=== PATIENT | female | born 1950 | race Caucasian/White ===

== ENCOUNTER 2022-05-17 14:42 | Emergency (ER) | payer BC ==
[~2022-05-17] VITALS: Ht 160 cm; Wt 68.5 kg
--- NOTE | 2022-05-17 14:42 | NUR ---
[facility] BLS TO ER BED 1
[2022-05-17 14:45] VITALS: BP 89/42
[2022-05-17] MEDS ORDERED: NACL 0.9% 1,000 ML IV ONE (14:45)
[2022-05-17] MEDS ORDERED: ONDANSETRON 4 MG/2 ML VIAL IVP ONE (14:45)
--- NOTE | 2022-05-17 15:00 | NUR ---
71YO FEMALE PT BIBA FROM [facility] DUE TO VOMITING. PER [facility], FACILITY STATES PT SAT UP FROM WHEELCHAIR AND HAD PROJECTILE VOMIT, DENIE BLOOD IN VOMIT. UPON ARRIVAL PT AAOX1 TO NAME . 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 PT STATES DENIES NAUSEA OR ABDOMINAL PAIN AT THIS TIME. PT DENIES CHEST PAIN OR SOB. PT PUT ON MONITOR. NO VISIBLE DISTESS, RSPIRATIONS EVEN AND UNLABORED. HX: ALZEHEIMERS, DEMENTIA, HDL NKA
[2022-05-17 15:20] LABS: BASOPHILS % (AUTO) 0.4 % (0.0-2.0); EOSINOPHILS # (AUTO) 0.2 K/uL (0-0.4); HEMATOCRIT 36.5 % (36-48); HEMOGLOBIN 12.3 g/dL (12.0-16.0); LYMPHOCYTES # (AUTO) 1.5 K/uL (2.5-16.5); LYMPHOCYTES % (AUTO) 20.1 % (20.5-51.1); MEAN CORPUSCULAR HEMOGLOBIN 30 pg (27-31); MEAN CORPUSCULAR HGB CONC 34 g/dL (33-37); MEAN CORPUSCULAR VOLUME 90.1 fL (80-94); MONOCYTES # (AUTO) 1.7 K/uL (0.8-1.0); MONOCYTES % (AUTO) 23.3 % (1.7-9.3); NEUTROPHILS # (AUTO) 3.9 K/uL (1.8-7.7); NEUTROPHILS % (AUTO) 53.2 % (42.2-75.2); PLATELET COUNT (AUTO) 178 K/uL (140-450); RED BLOOD CELL COUNT(AUTO) 4.05 MIL/uL (4.20-5.40); RED CELL DISTRIBUTION WIDTH 14.5 % (11.6-13.7); WHITE BLOOD COUNT (AUTO) 7.4 K/uL (4.8-10.8)
[2022-05-17 15:51] LABS: ALBUMIN 3.7 g/dL (3.4-5.0); ANION GAP 8.4 (8-16); ASPARTATE AMINOTRANSFERASE 14 U/L (15-37); CHLORIDE 110 mmol/L (98-107); CREATININE 1.1 mg/dL (0.6-1.3); GLUCOSE 136 mg/dL (74-106); LIPASE 321 U/L (73-393); POTASSIUM 3.4 mmol/L (3.5-5.1); SODIUM SERUM 145 mmol/L (136-145); TOTAL BILIRUBIN 0.3 mg/dL (0.0-1.0); UREA NITROGEN, BLOOD 38 mg/dL (7-18)
[2022-05-17] MEDS ORDERED: ONDA-188 SL (17:24)
--- NOTE | 2022-05-17 17:50 | NUR ---
IV removed, catheter intact and site benign. Applied folded 4x4 gauze and tape to stop bleeding.
--- NOTE | 2022-05-17 17:52 | NUR ---
ELIZABETH CALLED AND MADE AWARE OF PT D/C AND TRANSPORTATION BY . SPOKE WITH "CHRISTA"
--- NOTE | 2022-05-17 17:53 | NUR ---
Patient discharged with v/s stable. Written and verbal after care instructions FOR N/V given and explained. Patient alert, oriented and verbalized understanding of instructions. Wheel Chair Assisted with by . All questions addressed prior to discharge. ID band removed. Patient advised to follow up with PMD. Rx of ZOFRAN given.Opportunity to ask questions provided and answered.
--- NOTE | 2022-05-17 17:54 | NUR ---
The patient's care was reviewed and supervised by Slime Ireland RN.
[2022-05-17 18:23] VITALS: BP 106/60
== END 2022-05-17 18:23 | disposition home or self-care (01) ==
LOC: MED 14:42
DX: R11.2 Nausea with vomiting, unspecified (principal); Z20.822 Contact with and (suspected) exposure to COVID-19; F03.90 Unspecified dementia, unspecified severity, without behavioral disturbance, psychotic disturbance, mood disturbance, and anxiety
CPT/HCPCS: 80053; 83690; 85025; 87426; 96361; 96374; 99283; J2405; J7030

== ENCOUNTER 2022-06-22 11:37 | Emergency (ER) | payer BC ==
[~2022-06-22] VITALS: Ht 160 cm; Wt 60.3 kg
[~2022-06-22 11:37] MED LIST: ONDA-188 SL
[2022-06-22 11:40] VITALS: BP 132/64
--- NOTE | 2022-06-22 12:06 | NUR ---
71YR OLD FEMALE BIB EMS C/O SWELLING TO R ANKLE. UNKNOWN AMOUNT OF TIME. PT IS FROM [facility]. PT IS A&OX1. PT HAS DEMENTIA. DENIES PAIN WHEN ASKED. SWELLING TO R FOOT/ ANKLE. REDDNESS / DISCOLOR. GOOD CAP REFILL . UNKNOWN MECH OF INJURY. PT IN BED WITH SIDE RAILS UP X2. HOB ELEVATED. BED AT LOWEST POSITION. DEMENTIA AZ
--- NOTE | 2022-06-22 12:08 | NUR ---
CALLED [facility] TO OBTAIN FURTHER INFORMATION, SPOKE WITH NURSE FADUMO. HE STATED THAT PT HAS BEEN LIMPING X1 MONTH BUT TODAY NOTICIED DISCOLORATION TO LATERAL ASPECT OF R ANKLE. FACILITY CONTACTED PTS THEATER COMPANY PRODUCER WHO WANTED HER SENT TO ER TO R/T CLOT. MANDY POP MADE AWARE
--- NOTE | 2022-06-22 12:09 | NUR ---
PA POP AT BEDSIDE EVALUATING PT
--- NOTE | 2022-06-22 12:48 | NUR ---
US AT BEDSIDE
--- NOTE | 2022-06-22 13:07 | NUR ---
ULTRASOUND AT BEDSIDE AND COMPLETE
--- NOTE | 2022-06-22 13:22 | NUR ---
RAD AT BEDSIDE
--- NOTE | 2022-06-22 13:30 | NUR ---
XRAY AT BEDSIDE
--- NOTE | 2022-06-22 13:35 | NUR ---
Patient discharged with v/s stable. Written and verbal after care instructions given and explained. Patient alert, oriented and verbalized understanding of instructions. Ambulatory with steady gait. All questions addressed prior to discharge. ID band removed. Patient advised to follow up with PMD. Rx of PEPCID ZOFRAN ODT MYLANTA given. Patient educated on indication of medication including possible reaction and side effects. Opportunity to ask questions provided and answered.
--- NOTE | 2022-06-22 14:05 | NUR ---
PT IS RESTING AT BEDSIDE. ULTRASOUND AND XRAY COMPLETED. PENDING RESULTS.
--- NOTE | 2022-06-22 14:15 | NUR ---
CALLED [facility] TO UPDATE THEM OF DX. PT IS DISCHARGED. SPOKE WITH LYNDSAY, INFORMED THEM THAT PTS WILL BE TAKING HER BACK TO FACILITY.
[2022-06-22 14:20] VITALS: BP 103/71
--- NOTE | 2022-06-22 14:21 | NUR ---
Patient discharged with v/s stable. Written and verbal after care instructions given and explained. Patient verbalized understanding. Wheel Chair Assisted with steady gait. All questions addressed prior to discharge. Advised to follow up with PMD.
== END 2022-06-22 14:21 | disposition home or self-care (01) ==
LOC: MED 11:37
DX: M25.571 Pain in right ankle and joints of right foot (principal); F03.90 Unspecified dementia, unspecified severity, without behavioral disturbance, psychotic disturbance, mood disturbance, and anxiety
CPT/HCPCS: 72170; 73610; 73630; 93971; 99284; Q0092

== ENCOUNTER 2022-12-14 18:50 | Inpatient (IN) | payer BC, OTHER ==
[~2022-12-14] VITALS: Ht 165.1 cm; Wt 65.8 kg
[2022-12-14 18:58] VITALS: BP 144/91
--- NOTE | 2022-12-14 19:03 | NUR ---
PT BIBA BLS TO BED 4
--- NOTE | 2022-12-14 19:15 | NUR ---
BIBA after mechanical fall at residential ([facility]). alert and responsive, pt confused at baseline hx dementia. c/o pain to right hip and hematoma on back of head. no s/s distress at this time. per report, no known allergies.
--- NOTE | 2022-12-14 19:16 | NUR ---
EKG at bedside
--- NOTE | 2022-12-14 19:48 | NUR ---
inside technical sales representative by bedside drawing labs
[2022-12-14 20:05] LABS: BASOPHILS % (AUTO) 0.5 % (0.0-2.0); EOSINOPHILS # (AUTO) 0.1 K/uL (0-0.4); EOSINOPHILS % (AUTO) 1.4 % (0.0-4.0); HEMATOCRIT 36.7 % (36-48); HEMOGLOBIN 12.3 g/dL (12.0-16.0); LYMPHOCYTES # (AUTO) 1.5 K/uL (2.5-16.5); LYMPHOCYTES % (AUTO) 20.1 % (20.5-51.1); MEAN CORPUSCULAR HEMOGLOBIN 31 pg (27-31); MEAN CORPUSCULAR HGB CONC 34 g/dL (33-37); MEAN CORPUSCULAR VOLUME 92.5 fL (80-94); MONOCYTES # (AUTO) 1.6 K/uL (0.8-1.0); MONOCYTES % (AUTO) 21.1 % (1.7-9.3); NEUTROPHILS # (AUTO) 4.3 K/uL (1.8-7.7); NEUTROPHILS % (AUTO) 56.9 % (42.2-75.2); PLATELET COUNT (AUTO) 175 K/uL (140-450); RED BLOOD CELL COUNT(AUTO) 3.96 MIL/uL (4.20-5.40); RED CELL DISTRIBUTION WIDTH 15.1 % (11.6-13.7); WHITE BLOOD COUNT (AUTO) 7.6 K/uL (4.8-10.8)
--- NOTE | 2022-12-14 20:08 | NUR ---
Pt taken to CT
--- NOTE | 2022-12-14 20:11 | NUR ---
PT UNCOOPERATIVE AND COMBATIVE PER PRODUCT DEVELOPMENT ASSISTANT. UNABLE TO GET CT AT THIS TIME. DR. SALAZAR MADE AWARE
[2022-12-14 20:40] LABS: ALBUMIN 4.2 g/dL (3.4-5.0); ANION GAP 13.8 (8-16); ASPARTATE AMINOTRANSFERASE 21 U/L (15-37); CARBON DIOXIDE 28.1 mmol/L (21-32); CHLORIDE 107 mmol/L (98-107); CREATININE 1.1 mg/dL (0.6-1.3); GLUCOSE 109 mg/dL (74-106); POTASSIUM 3.9 mmol/L (3.5-5.1); SODIUM SERUM 145 mmol/L (136-145); TOTAL BILIRUBIN 0.2 mg/dL (0.0-1.0); UREA NITROGEN, BLOOD 26 mg/dL (7-18)
[2022-12-14] MEDS ORDERED: diphenhydrAMINE 50 MG/ML VIAL IM ONE (21:00)
[2022-12-14] MEDS ORDERED: LORazepam 2 MG/ML VIAL IM/IVP ONE (21:00)
[2022-12-14] MEDS ORDERED: HALOPERIDOL IM 5 MG/ML VIAL IM ONE (21:00)
--- NOTE | 2022-12-14 21:05 | NUR ---
Pt confused and agitated, Dr. Jimenez aware and orders were received and carried out.
--- NOTE | 2022-12-14 21:52 | NUR ---
Pt taken to CT
--- NOTE | 2022-12-14 22:05 | NUR ---
Xray by bedside
[2022-12-14] MEDS ORDERED: AZITHROMYCIN 500 MG in DEXTROSE 5% 250 ML IV ONE (23:05)
--- NOTE | 2022-12-14 23:18 | NUR ---
Pt noted resting comfortably at this time. No s/s discomfort.
[2022-12-14] MEDS ORDERED: LORazepam 2 MG/ML VIAL IVP PRN (23:25)
--- NOTE | 2022-12-14 23:36 | NUR ---
Swab collected and sent to lab
[2022-12-15] MEDS ORDERED: SERT100T PO (00:17)
[2022-12-15] MEDS ORDERED: QUET50TA PO (00:17)
[2022-12-15] MEDS ORDERED: ATOR20TA PO (00:17)
[2022-12-15] MEDS ORDERED: ATI.5 PO (00:17)
[2022-12-15] MEDS ORDERED: DONE10TA37 PO (00:17)
[2022-12-15] MEDS ORDERED: MEMA10TA56 PO (00:17)
[2022-12-15] MEDS ORDERED: DIVA125E1 PO (00:17)
[2022-12-15] MEDS ORDERED: cefTRIAXone 1,000 MG VIAL ONE (00:24)
[2022-12-15] MEDS ORDERED: AZITHROMYCIN 500 MG INJ VIAL IV ONE (00:50)
--- NOTE | 2022-12-15 01:39 | NUR ---
Pt noted resting comfortably at this time. No c/o discomfort. No s/s distress
--- NOTE | 2022-12-15 02:10 | NUR ---
Pt changed and repositonined, linens changed.
--- NOTE | 2022-12-15 03:10 | NUR ---
Pt noted hypotensive with BP of 80/39. Dr. Santana contacted and received orders for 500 NS bolus and then NS @ 100ml/hr. Noted and carried out.
[2022-12-15] MEDS ORDERED: NACL 0.9% 500 ML IV SCH (03:25)
[2022-12-15] MEDS: NACL 0.9% 1,000 ML IV SCH ×3 (04:00→23:25)
--- NOTE | 2022-12-15 04:00 | NUR ---
Pt changed and repositioned. linens changed. No s/s discomfort at this time.
[2022-12-15] MEDS ORDERED: ALBUTEROL 0.083% 2.5 MG/3 ML NEBU INH PRN (06:50)
[2022-12-15 06:57] LABS: ANION GAP 15.9 (8-16); CARBON DIOXIDE 23.5 mmol/L (21-32); CHLORIDE 109 mmol/L (98-107); GLUCOSE 125 mg/dL (74-106); POTASSIUM 3.4 mmol/L (3.5-5.1); SODIUM SERUM 145 mmol/L (136-145); UREA NITROGEN, BLOOD 24 mg/dL (7-18)
[2022-12-15] MEDS ORDERED: ZOLPIDEM 10 MG TAB PO PRN (07:00)
[2022-12-15] MEDS ORDERED: MORPHINE SULFATE 2 MG/ML SYR IVP PRN (07:00)
[2022-12-15] MEDS ORDERED: DOCUSATE SODIUM 100 MG GELCAP PO PRN (07:00)
[2022-12-15] MEDS ORDERED: ACETAMINOPHEN 325 MG TAB PO PRN (07:00)
[2022-12-15] MEDS ORDERED: LORazepam 2 MG/ML VIAL IVP PRN (07:00)
[2022-12-15] MEDS ORDERED: MAG SULF 2000 MG/WATER PREMIX 50 ML IV PRN (07:00)
[2022-12-15] MEDS ORDERED: ONDANSETRON 4 MG/2 ML VIAL IVP PRN (07:00)
[2022-12-15] MEDS ORDERED: POTASSIUM CHLORIDE 10 MEQ TABER PO PRN (07:00)
--- NOTE | 2022-12-15 07:16 | NUR ---
Report given to Rudy DAVIDSON for transfer of care
--- NOTE | 2022-12-15 07:36 | NUR ---
Report given to STUART Galeana for room 108A.
[2022-12-15 08:26] VITALS: BP 122/60
[2022-12-15] MEDS: DIVALPROEX SPRINKLES 125 MG CAPDR PO SCH ×2 (09:00→23:49)
[2022-12-15] MEDS: MEMANTINE 10 MG TAB PO SCH ×2 (09:00→23:47)
[2022-12-15] MEDS: SERTRALINE 50 MG TAB PO SCH ×2 (09:00→23:50)
--- NOTE | 2022-12-15 09:02 | NUR ---
PATIENT HAS BEEN SCREENED AND CATEGORIZED MODERATE NUTRITION RISK. PATIENT WILL BE SEEN WITHIN 3-5 DAYS OF ADMISSION. REVIEWED BY EUGENE RICKETTS RD
[2022-12-15 12:00] VITALS: BP 124/67
[2022-12-15 16:00] VITALS: BP 112/73
--- NOTE | 2022-12-15 19:12 | NUR ---
12/15/20221912: REPORT OFF TO JOSE DAVIDSON. [id number].
--- NOTE | 2022-12-15 19:55 | NUR ---
FOUND PT ON RA WITH AN SPO2 OF 81%. PLACED PT ON O2, TITRATED TO 4L. CURRENT SPO2 97% ON 4L NC. NO RESPIRATORY DISTRESS AT THIS TIME, RN AWARE. WILL CONT TO MONITOR.
[2022-12-15 20:00] VITALS: BP 161/91
--- NOTE | 2022-12-15 20:00 | NUR ---
RECEIVED REPORT FROM DAY SHIFT NURSE FOR CONTINUITY OF CARE. PATIENT IS STABLE, SLEEPING IN BED. A&O X1. CURRENTLY ON 2L NC WITH A 02 SATURATION OF 98%. RESPIRATIONS EVEN AND UNLABORED, NO S/SX OF ACUTE DISTRESS NOTED. IV SITE LOCATED AT RIGHT AC, 18 GAUGE, INTACT AND PATENT. SKIN IS INTACT. SAFETY MEASURES IMPLEMENTED, CALL LIGHT WITHIN REACH, WILL CONTINUE TO MAKE FREQUENT ROUNDS.
[2022-12-15] MEDS ORDERED: DONEPEZIL 10 MG TAB PO SCH (21:00)
[2022-12-15] MEDS: LORazepam 0.5 MG TAB PO SCH ×2 (21:00→23:49)
[2022-12-15] MEDS: AZITHROMYCIN 500 MG in DEXTROSE 5% 250 ML IV SCH (23:00)
[2022-12-15] MEDS: ATORVASTATIN 20 MG TAB PO SCH (23:48)
--- NOTE | 2022-12-15 23:57 | NUR ---
SCHEDULED MEDICATIONS FOR 2100 GIVEN AT 2350 DUE TO PATIENT BEING ASLEEP DURING SCHEDULED TIME. ATIVAN WAS NON-ADMINISTERED DUE TO DAY SHIFT NURSE ADMINISTERING ATIVAN VIA IV AT 1800. PATIENT IS SEDATED BUT STABLE, NO SIGNS OF DISTRESS NOTED, WILL CONTINUE TO MONITOR.
[2022-12-16] VITALS: BP 137/86
[2022-12-16 04:00] VITALS: BP 107/56
--- NOTE | 2022-12-16 04:30 | NUR ---
PATIENT ASLEEP LYING SEMI FOWLERS POSITION. NOTICEABLE CHEST RISE AND FALL, NO SIGNS OF ACUTE DISTRESS NOTED, WILL CONTINUE TO MONITOR.
[2022-12-16 07:02] LABS: BASOPHILS % (AUTO) 0.5 % (0.0-2.0); EOSINOPHILS # (AUTO) 0.4 K/uL (0-0.4); EOSINOPHILS % (AUTO) 5.1 % (0.0-4.0); HEMATOCRIT 30.7 % (36-48); HEMOGLOBIN 10.5 g/dL (12.0-16.0); LYMPHOCYTES # (AUTO) 1.6 K/uL (2.5-16.5); LYMPHOCYTES % (AUTO) 23.1 % (20.5-51.1); MEAN CORPUSCULAR HEMOGLOBIN 31 pg (27-31); MEAN CORPUSCULAR HGB CONC 34 g/dL (33-37); MONOCYTES # (AUTO) 1.8 K/uL (0.8-1.0); MONOCYTES % (AUTO) 25.5 % (1.7-9.3); NEUTROPHILS # (AUTO) 3.2 K/uL (1.8-7.7); NEUTROPHILS % (AUTO) 45.8 % (42.2-75.2); PLATELET COUNT (AUTO) 135 K/uL (140-450); RED BLOOD CELL COUNT(AUTO) 3.33 MIL/uL (4.20-5.40); RED CELL DISTRIBUTION WIDTH 15.2 % (11.6-13.7); WHITE BLOOD COUNT (AUTO) 6.9 K/uL (4.8-10.8)
[2022-12-16 07:12] LABS: ANION GAP 10.1 (8-16); CARBON DIOXIDE 27.6 mmol/L (21-32); CHLORIDE 108 mmol/L (98-107); GLUCOSE 109 mg/dL (74-106); POTASSIUM 3.7 mmol/L (3.5-5.1); SODIUM SERUM 142 mmol/L (136-145); UREA NITROGEN, BLOOD 20 mg/dL (7-18)
--- NOTE | 2022-12-16 07:30 | NUR ---
RECEIVED REPORT FROM ROLL ON WORKER NURSE FOR CONTINUITY OF CARE, POC DISCUSSED. PT RESTING IN BED WITH CHEST RISING AND FALLING EVEN AND UNLABORED. NO S/S OF ACUTE DISTRESS. ON TELE MONITOR. ALL SAFETY MEASURES IN PLACE, CALL LIGHT WITHIN REACH. WILL CONTINUE TO MONITOR.
[2022-12-16 08:00] VITALS: BP 107/65
[2022-12-16] MEDS: NACL 0.9% 1,000 ML IV SCH ×2 (08:43→20:02)
[2022-12-16] MEDS: SERTRALINE 50 MG TAB PO SCH (08:43)
[2022-12-16] MEDS: MEMANTINE 10 MG TAB PO SCH (08:43)
[2022-12-16] MEDS: DIVALPROEX SPRINKLES 125 MG CAPDR PO SCH ×2 (08:43→20:13)
--- NOTE | 2022-12-16 09:02 | NUR ---
DC PLANNING PT HAS HX OF DEMENTIA, THEREFORE COLLAT INFO GATHERED FROM PTS JANE. JANE REPORTS PATIENT IS RESIDENT OF [facility], ADMISSION 09/25/21. PT IS IN MEMORY CARE UNIT WITH FACILITY SHE HAS HX OF ADVANCED ALZHEIMER. CAMILLA IDENTIFIED JANE ODONNELL, , NURIA ODONNELL, SON, AND GUERO BENJAMIN, DAUGHTER [phone] EC. PT IS REPORTED TO BE FOLLOWED BY DR DAVIS. PT UTILIZES WC AND REQUIRES ASSISTANCE W/ ADL'S THAT AR STAFF AIDS WITH. JANE REPORTS PT IS TYPICALLY COMPLIANT WITH CARE HOWEVER, DOES NOT LIKE BEING TOUCHED. PT IS REPORTED TO BECOME VERBALLY AGGRESSIVE AND SCREAMS WHEN SHE NEEDS CHANGING. JANE REPORTS DC PLAN IS FOR PT TO RETURN TO [facility] WHEN MEDICALLY STABLE. Addendum: 12/16/22 at 0906 by Angelo SALTER Amended: Links added.
--- NOTE | 2022-12-16 09:36 | NUR ---
ALL MORNING MEDICATION ADMINISTERED PER MD ORDER, PT A&OX0, ON 2L NC, CLEAR LUNG SOUNDS. ACTIVE BOWEL SOUNDS, NO EDEMA NOTED +2 PEDAL PULSES. BROKERAGE OFFICE MANAGER AT BEDSIDE ASSISTING PT WITH BREAKFAST. IV PATENT AND INTACT, NEW IV FLUIDS STARTED. ALL SAFETY MEASURES IN PLACE, CALL LIGHT WITHIN REACH. WILL CONTINUE TO MONITOR.
[2022-12-16 12:00] VITALS: BP 93/57
--- NOTE | 2022-12-16 12:15 | NUR ---
AT BEDSIDE, ANSWERED ALL HIS QUESTIONS.
--- NOTE | 2022-12-16 13:11 | NUR ---
P.T. NOTES P.T. EVAL COMPLETED; REFER TO EVAL FOR DETAILS.
--- NOTE | 2022-12-16 13:20 | NUR ---
ROUNDED ON PT, PT ASLEEP WITH CHEST RISING AND FALL EVEN AND UNLABORED. ALL SAFETY MEASURES IN PLACE, CALL LIGHT WITHIN REACH. WILL CONTINUE TO MONITOR.
--- NOTE | 2022-12-16 14:42 | NUR ---
ROUNDED ON PT, PT IS ASLEEP IN BED WITH CHEST RISING AND FALLING EVEN AND UNLABORED. ON 2L NC. ALL SAFETY MEASURES IN PLACE, CALL LIGHT WITHIN REACH. WILL CONTINUE TO MONITOR.
--- NOTE | 2022-12-16 15:31 | NUR ---
NOTIFIED REGARDING PT BLOOD PRESSURE, 107/45 WITH A MAP OF 68, HEART RATE 78. PENDING NEW ORDERS.
[2022-12-16] MEDS ORDERED: NACL 0.9% 1,000 ML IV SCH (15:35)
--- NOTE | 2022-12-16 15:39 | NUR ---
1L BOLUS STARTED PER MD ORDER FOR HYPOTENSION. SON AT BEDSIDE, ALL QUESTIONS ANSWERED.
[2022-12-16 16:00] VITALS: BP 107/45
--- NOTE | 2022-12-16 17:09 | NUR ---
PT HAS BEEN CLEANED, PT BECAME COMBATIVE. SON AT BEDSIDE. 1L BOLUS COMPLETED. PT REMAINED STABLE. ALL SAFETY MEASURES IN PLACE, CALL LIGHT WITHIN REACH. WILL CONTINUE TO MONITOR.
--- NOTE | 2022-12-16 18:41 | NUR ---
ALL NEEDS HAVE BEEN MET THROUGHOUT THE SHIFT, ALL SAFETY MEASURES IN PLACE. CALL LIGHT WITHIN REACH. WILL ENDORSE TO FAMILY CENTERED SPECIALIST AT 1900.
--- NOTE | 2022-12-16 19:30 | NUR ---
RECEIVED REPORT FROM DAY SHIFT NURSE FOR CONTINUITY OF CARE. PATIENT IS STABLE, AWAKE IN BED. A&O X1. CURRENTLY ON 2L NC, WITH A 02 SATURATION OF 99%. RESPIRATIONS EVEN AND UNLABORED, NO S/SX OF ACUTE DISTRESS NOTED. IV SITE LOCATED AT RIGHT AC, 18 GAUGE, INTACT AND PATENT. SKIN IS INTACT. SAFETY MEASURES IMPLEMENTED, CALL LIGHT WITHIN REACH, WILL CONTINUE TO MAKE FREQUENT ROUNDS.
--- NOTE | 2022-12-16 20:05 | NUR ---
SCHEDULED MEDICATIONS GIVEN PER MD ORDER. CLEAN, CHANGED, AND REPOSITIONED PATIENT. PATIENT IS AGITATED BUT STABLE, WILL CONTINUE TO MONITOR.
[2022-12-16] MEDS: ATORVASTATIN 20 MG TAB PO SCH (20:13)
[2022-12-16] MEDS: AZITHROMYCIN 500 MG in DEXTROSE 5% 250 ML IV SCH (22:09)
[2022-12-17] VITALS: BP 107/55
[2022-12-17] MEDS: NACL 0.9% 1,000 ML IV SCH ×2 (05:58→15:25)
[2022-12-17 06:36] LABS: BASOPHILS % (AUTO) 0.3 % (0.0-2.0); EOSINOPHILS # (AUTO) 0.3 K/uL (0-0.4); EOSINOPHILS % (AUTO) 5.2 % (0.0-4.0); HEMATOCRIT 30.2 % (36-48); HEMOGLOBIN 10.2 g/dL (12.0-16.0); LYMPHOCYTES # (AUTO) 1.4 K/uL (2.5-16.5); LYMPHOCYTES % (AUTO) 25.2 % (20.5-51.1); MEAN CORPUSCULAR HEMOGLOBIN 31 pg (27-31); MEAN CORPUSCULAR HGB CONC 34 g/dL (33-37); MEAN CORPUSCULAR VOLUME 92.5 fL (80-94); MONOCYTES # (AUTO) 1.4 K/uL (0.8-1.0); MONOCYTES % (AUTO) 24.2 % (1.7-9.3); NEUTROPHILS # (AUTO) 2.5 K/uL (1.8-7.7); NEUTROPHILS % (AUTO) 45.1 % (42.2-75.2); PLATELET COUNT (AUTO) 133 K/uL (140-450); RED BLOOD CELL COUNT(AUTO) 3.26 MIL/uL (4.20-5.40); RED CELL DISTRIBUTION WIDTH 14.9 % (11.6-13.7); WHITE BLOOD COUNT (AUTO) 5.6 K/uL (4.8-10.8)
[2022-12-17 06:44] LABS: ANION GAP 11.5 (8-16); CARBON DIOXIDE 28.4 mmol/L (21-32); CHLORIDE 107 mmol/L (98-107); CREATININE 0.9 mg/dL (0.6-1.3); GLUCOSE 95 mg/dL (74-106); SODIUM SERUM 144 mmol/L (136-145); UREA NITROGEN, BLOOD 12 mg/dL (7-18)
[2022-12-17 06:49] LABS: POTASSIUM 2.9 mmol/L (3.5-5.1)
--- NOTE | 2022-12-17 07:15 | NUR ---
RECEIVED REPORT FROM NIGHT NURSE JOSE FOR CONTINUITY OF CARE. INITIAL ASSESSMENT DONE. PER JOSE, PT CRITICAL K 2.9. PRN K-DUR WAS GIVEN. IVF INFUSING WELL. REMAINS STABLE. CALL LIGHT KEPT WITHIN REACH. WILL CONTINUE TO MONITOR.
--- NOTE | 2022-12-17 07:27 | NUR ---
ENDORSED PATIENT TO DAY SHIFT NURSE FOR CONTINUITY OF CARE, NO DISTRESS NOTED AT THIS TIME.
[2022-12-17 08:00] VITALS: BP 115/63
[2022-12-17] MEDS: DIVALPROEX SPRINKLES 125 MG CAPDR PO SCH (09:11)
--- NOTE | 2022-12-17 09:11 | NUR ---
ADMINISTERED SCHEDULED MEDICATIONS. TOLERATING WELL.
--- NOTE | 2022-12-17 09:25 | NUR ---
PT. WITH LOW MARIO SCALE AT MODERATE TO HIGH RISK, CONTINUE TO FOLLOW PRESSURE INJURY PREVENTION INTERVENTIONS. -POSITIONING: TURN AND REPOSITION PATIENT Q 2H OR SOONER USE PILLOWS TO KEEP BONY PROMINENCES FROM DIRECT CONTACT WITH SURFACES USE REPOSITIONING WEDGES TO PROVIDE 30-DEGREE ANGLE FOR SIDE LYING POSITIONS OFFLOADING OR FOAM DRESSING TO ALL TUBING TO PREVENT MEDICAL DEVICES RELATED PRESSURE INJURY -RE-EVALUATING AND MANAGING INCONTINENCE MONITOR SKIN CONDITION DURING POSITION CHANGE DO NOT MASSAGE REDNESS, BONY PROMINENCES FREQUENT MARLYS-CARE AND PROVIDE BARRIER CREAMS PRN IF SOILING MOISTURE CONTROL BY OFFER BED PEARSON/URINAL /ABSORBENT PAD TO WICK AND HOLD MOISTURE KEEP SKIN DRY AND PROTECT FROM FRICTION -MANAGE FRICTION/SHEAR/MOBILITY KEEP HOB AT THE LOWEST LEVEL OF ELEVATION NO MORE THAN 30 DEGREE UNLESS OTHERWISE CONTRAINDICATED USE LIFT SHEET OR TRANSFER DEVICE TO MOVE PATIENT AND PREVENT LATERAL SHEER. PROTECT HEELS, ELBOWS BONY PROMINENCES WITH SKIN BERRIES OR FOAM DRESSING IF EXPOSED TO FRICTION OFFLOAD BILATERAL HEELS BY PLACING PILLOWS UNDER CALVES AT ALL TIMES, UNLESS OTHERWISE CONTRAINDICATED -PRESSURE REDISTRIBUTION SURFACE THERAPY LIGIA ISOFLEX MATTRESS -NUTRITION: PLEASE FOLLOW RD RECOMMENDATIONS AND OFFER NUTRITION SUPPLEMENTS IF ORDERED. PLEASE CONTACT WOUND CARE NURSE FOR ANY QUESTION AND CHANGE OF WOUND CONDITION.
[2022-12-17] MEDS ORDERED: AZIT250T4 PO (09:29)
--- NOTE | 2022-12-17 13:21 | NUR ---
DC PLANNING: PATIENT HAS A DC ORDER GOING BACK TO [facility]. CALLED [facility] ARRANGED TRANSPORT AND DIRECTOR OF NEUROLOGY TIME 3PM. IF THEY DON'T COME AT 3 PLS CALL [phone] CM TO FOLLOW
--- NOTE | 2022-12-17 15:27 | NUR ---
PT LEFT HOSPITAL, DISCHARGE BACK TO [facility]. [facility] PER [facility]. IV AND ID BAND REMOVE. DISCHARGE PAPERWORK GIVEN AND SIGNED BY . ALL BELONGINGS TAKEN. REMAINS STABLE.
== END 2022-12-17 15:44 | disposition home or self-care (01) | DRG 604 ==
LOC: MED 18:50 → MTU 23:25
PROVIDERS: ADMIT Family Medicine; ATTEND Family Medicine
DX: S00.03XA Contusion of scalp, initial encounter (principal); J69.0 Pneumonitis due to inhalation of food and vomit; E83.51 Hypocalcemia; G30.9 Alzheimer's disease, unspecified; F02.80 Dementia in other diseases classified elsewhere, unspecified severity, without behavioral disturbance, psychotic disturbance, mood disturbance, and anxiety; Z20.822 Contact with and (suspected) exposure to COVID-19; W18.39XA Other fall on same level, initial encounter; Y93.89 Activity, other specified; Y92.89 Other specified places as the place of occurrence of the external cause; Y99.8 Other external cause status
CPT/HCPCS: 36415; 70450; 71045; 72125; 80048; 80053; 83735; 84484; 85025; 87040; 87081; 92526; 93005; 96365; 96368; 96372; 97110; 97112; 97530; 99291; J0456; J0696; J1200; J1630; J2060; J7060; J7613; Q0092

== ENCOUNTER 2023-03-12 05:56 | Emergency (ER) | payer BC, OTHER ==
[~2023-03-12] VITALS: Ht 170.2 cm; Wt 70.3 kg
[~2023-03-12 05:56] MED LIST changes: +ATI.5 PO; +ATOR20TA PO; +AZIT250T4 PO; +DIVA125E1 PO; +DONE10TA37 PO; +MEMA10TA56 PO; +QUET50TA PO; +SERT100T PO
[2023-03-12 05:59] VITALS: BP 130/59
--- NOTE | 2023-03-12 06:00 | NUR ---
PT [facility] ALS ER BED 11
--- NOTE | 2023-03-12 06:57 | NUR ---
PT TO CT VIA MARK
[2023-03-12] MEDS ORDERED: OLANZapine 10 MG VIAL IM ONE (07:05)
[2023-03-12] MEDS ORDERED: WATER STERILE 10 ML MC ONE (07:13)
--- NOTE | 2023-03-12 07:34 | NUR ---
PLACED PATIENT ON MONITOR. REFUSED GOWN AT THIS TIME, AWAITING CT
--- NOTE | 2023-03-12 07:37 | NUR ---
PATIENT TAKEN TO CT
--- NOTE | 2023-03-12 07:39 | NUR ---
PT CALM AND RESTING. VITALS STABLE. PT WENT TO CT
--- NOTE | 2023-03-12 07:55 | NUR ---
PT BACK FROM CT
--- NOTE | 2023-03-12 08:23 | NUR ---
PT CALM AND RESTING AT THIS TIME.
--- NOTE | 2023-03-12 08:55 | NUR ---
attempted to call daughter. lvm
--- NOTE | 2023-03-12 10:10 | NUR ---
PT GIVEN MEAL. TOLERATED PO WELL.
--- NOTE | 2023-03-12 10:39 | NUR ---
CALLED PT.'S TO COME AND COMMERCIAL PORTFOLIO MANAGER PT. Addendum: 03/12/23 at 1040 by [email or web address] CALLED [phone] AND SPOKE WITH PT.'S AND HE WILL COMMERCIAL PORTFOLIO MANAGER AROUND 11:30 TODAY. PT.'S PRIMARY RN NOTIFIED
[2023-03-12 11:10] VITALS: BP 124/66
--- NOTE | 2023-03-12 11:10 | NUR ---
Patient discharged with v/s stable. Written and verbal after care instructions given and explained. Patient verbalized understanding. Wheel Chair Assisted with to car. All questions addressed prior to discharge. Advised to follow up with PMD.
== END 2023-03-12 11:10 ==
LOC: MED 05:56
DX: S00.83XA Contusion of other part of head, initial encounter (principal); S00.31XA Abrasion of nose, initial encounter; F03.90 Unspecified dementia, unspecified severity, without behavioral disturbance, psychotic disturbance, mood disturbance, and anxiety; W18.30XA Fall on same level, unspecified, initial encounter; Y93.89 Activity, other specified; Y92.89 Other specified places as the place of occurrence of the external cause; Y99.8 Other external cause status
CPT/HCPCS: 70450; 72125; 96372; 99285; J3490